=== PATIENT | male | born 1945 | race Caucasian/White ===

== ENCOUNTER 2023-03-31 14:26 | Observation (INO) | payer MEDICARE ==
[~2023-03-31] VITALS: Ht 172.7 cm; Wt 71.4 kg
--- NOTE | ~2023-03-31 | EKG ---
[facility] [address] [facility] [place], [place] [address] Draft EKG completed, results pending confirmation PATIENT NAME: ARABELLA ROMERO Electrocardiogram DATE OF : 49 PHYSICIAN: PRELIMINARY REPORT #: [id number] REPORT IS CONFIDENTIAL AND NOT TO BE RELEASED WITHOUT AUTHORIZATION
[~2023-03-31 14:26] MED LIST: ASPIRIN EC81 MG PO; ATORVASTATIN CA20 MG PO; GLIMEPIRIDE4 MG PO; METFORMIN HCL850 MG PO; METRONIDAZOLE45 G1 TOP; MULTIVITAMINS1 EAC8 PO; PIOGLITAZONE HC45 MG PO
[2023-03-31] MEDS ORDERED: IBLOOD GLUCOSE TEST STRIP 1 EA TEST XX ONE (14:45)
[2023-03-31 14:58] LABS: BASOPHILS 0.7 % (0-2); EOSINOPHILS 4.6 % (0-6); HEMATOCRIT 36.5 % (35.0-50.0); HEMOGLOBIN 12.7 g/dL (12.0-18.0); LYMPHOCYTES 21.7 % (24-44); MCH 33.1 (27-36); MCHC 34.9 g/dl (30-36); MONOCYTES 14.7 % (0-12); NEUTROPHILS 58.3 % (39-80); PLATELET COUNT 156 K/uL (140-440); RBC 3.84 M/ul (4.3-5.7); RDW 13.1 (10.5-15.0)
[2023-03-31] MEDS ORDERED: LISINOPRIL5 MG PO (15:09)
[2023-03-31 15:11] LABS: INR 1.05 (0.80-1.30); PROTIME 13.3 Sec (11.2-14.2)
[2023-03-31 15:13] LABS: PARTIAL THROMBOPLASTIN TIME 27.6 Sec (22.9-41.3)
[2023-03-31 15:16] LABS: ALBUMIN 3.6 g/dL (3.4-5.0); ALBUMIN/GLOBULIN RATIO 1.03 (1.1-2.4); ANION GAP 11.2 (7-21); BUN/CREATININE RATIO 18.51 (6.0-28.6); CALCIUM 8.9 mg/dL (8.5-10.1); CREATININE, SERUM 0.81 mg/dL (0.70-1.30); POTASSIUM 4.2 mmol/L (3.5-5.1); PROTEIN, TOTAL 7.1 g/dL (6.4-8.2)
--- NOTE | 2023-03-31 15:23 | EKG ---
[facility] [facility] [address] [facility] [place], [place] [address] Signed Normal sinus rhythm Left axis deviation Abnormal ECG No previous ECGs available Confirmed by KATY WILKINSON MD ([id number]) on 03/31/2023 3:22:52 PM Electronically Signed By: KATY WILKINSON 03/31/23 1523 PATIENT NAME: ARABELLA ROMERO Electrocardiogram DATE OF : 49 PHYSICIAN: KATY WILKINSON REPORT #: [id number] REPORT IS CONFIDENTIAL AND NOT TO BE RELEASED WITHOUT AUTHORIZATION
[2023-03-31] MEDS ORDERED: ASPIRIN 325 MG TAB PO ONE (15:30)
[2023-03-31 15:48] LABS: AMPHETAMINES, URINE NEGATIVE (NEGATIVE); BARBITURATES, URINE NEGATIVE (NEGATIVE); BENZODIAZEPINE, URINE NEGATIVE (NEGATIVE); BUPRENORPHINE, URINE NEGATIVE (NEGATIVE); CANNABINOID, URINE NEGATIVE (NEGATIVE); COCAINE, URINE NEGATIVE (NEGATIVE); ECSTASY, URINE NEGATIVE (NEGATIVE); FENTANYL, URINE NEGATIVE (NEGATIVE); METHADONE, URINE NEGATIVE (NEGATIVE); OPIATES, URINE NEGATIVE (NEGATIVE); OXYCODONE, URINE NEGATIVE (NEGATIVE); PHENCYCLIDINE, URINE NEGATIVE (NEGATIVE)
[2023-03-31] MEDS ORDERED: CLOPIDOGREL BISULFATE 75 MG TAB PO SCH (16:00)
--- NOTE | 2023-03-31 16:00 | NUR ---
ASKED PATIENT IF HE WOULD LIKE TO WASH HIS HAIR WITH ONE OF OUR SHAMPOO CAPS. HE SAID SURE BROUGHT IT IN HIS ROOM. PUT IT ON HIS HEAD AND DID THE REST.
[2023-03-31] MEDS ORDERED: PHARMACY RENAL DOSE ADJUSTMENT 1 DOSE MISC PO SCH (16:02)
[2023-03-31] MEDS ORDERED: PANTOPRAZOLE SODIUM 40 MG TABEC PO SCH (16:02)
[2023-03-31] MEDS ORDERED: LEVOTHYROXINE50 MCG PO (16:10)
[2023-03-31] MEDS ORDERED: METFORMIN HCL850 MG PO (16:12)
[2023-03-31] MEDS ORDERED: ACETAMINOPHEN 500 MG TAB PO PRN (16:15)
[2023-03-31] MEDS ORDERED: IBLOOD GLUCOSE TEST STRIP 1 EA TEST XX PRN (16:15)
[2023-03-31] MEDS ORDERED: DEXTROSE 50% 50 ML SYR IV PRN ×2 (16:15)
[2023-03-31] MEDS ORDERED: GLUCAGON,HUMAN RECOMBINANT 1 MG/ML VIAL SUB-Q PRN (16:15)
[2023-03-31] MEDS ORDERED: DEXTROSE 5% 1,000 ML IV PRN (16:15)
[2023-03-31 16:26] VITALS: BP 141/78
--- NOTE | 2023-03-31 16:27 | NUR ---
PT ARRIVED FROM ER, PT STANDS AND TRANSFERS SELF TO BED. PT STEADY ON FEET. CHANGES IN TO PAJAMA PANTS WITH NO ASSISTANCE NEEDED. BMAT LEVEL 4, PT INDEPENDANT IN ROOM. PT DENIES PAIN AND NAUSEA. PT ALERT AND ORIENTED TO ALL. NIH SCORE OF 0. PT DENIES ANY CHANGES IN SPEACH OR ANY TINGLING AT THIS TIME. PT STATES ALL HIS PREVIOUS SYMPTOMS HAVE RESOLVED. IZZY PRESENT. HEART TONES REGULAR. TELEMETRY MONITORING PLACED WITH NORMAL SINUS RYTHEM SEEN ON MONITOR, HEART RATE IN THE 80'S. ABDOMEN SOFT AND NON TENDER. LAST BM TODAY. LUNG SOUNDS CLEAR THROUGHOUT. PT TOELRATING ROOM AIR. PT DENEIS CHEST PAIN OR SHORTNESS OF BREATH. NO SKIN ABNOMAILITES PRESENT. MRI SCREENING FORM COMPLETED. BED SIDE SWALLOW EVALUATION COMPLETED, PT PASSESS WITH NO SWALLOWING DIFFICULTIES. MEDICATIONS GIVEN. PT OREINTED TO ROOM AND USE OF CALL LIGHT. NO ADDITIONAL RQEUESTS OR COMPLAINTS. CALL LIGHT WITHIN REACH. BED RAILS UP.
[2023-03-31] MEDS ORDERED: SODIUM CHLORIDE 0.9% 1,000 ML IV SCH (16:30)
[2023-03-31] MEDS ORDERED: INSULIN LISPRO 100 UNIT/ML ML SUB-Q SCH (17:00)
[2023-03-31] MEDS ORDERED: IBLOOD GLUCOSE TEST STRIP 1 EA TEST VI SCH (17:00)
--- NOTE | 2023-03-31 17:24 | NUR ---
IV PUMP ALARMING, "DISTAL OCCLUSION." PT NOTED TO BE ATTEMPTING TO EAT DINNER WITH A LEFT AC IV SITE. PT FRUSTRATED THAT HE CAN'T "BEND MY ELBOW." PT REQUESTS A NEW IV SITE. 22G IV STARTED TO LEFT HAND PER PROTOCOL. BRISK BLOOD RETURN PRESENET. IV FLUIDS SWITCHED TO THIS SITE. PT UP TO VOID USING URINAL, NO ASSISTANCE NEEDED. PTS AT BEDSIDE. TELEMETRY MONITORING UNCHANGED, NORMAL SINUS RYTHEM. NO ADDITIONAL REQUESTS OR COMPLAINTS. CALL LIGHT WITHIN REACH. BED RAILS UP.
--- NOTE | 2023-03-31 17:43 | NUR ---
PT ARRIVED THIS SHIFT, HERE FOR TIA/CVA RULE OUT. MRI PLANNED FOR TOMORROW MORNING. PT INDEPENDANT IN ROOM, STEADY ON FEET. PT TOLERATING 60G CARB DIET, WITH GOOD APPITITE. BLOOD SUGAR CHECKS ACHS WITH SLIDING SCALE INSULIN GIVEN. NIH SCORE OF 0 THIS SHIFT. PT REPORTS ALL SYMTOMS PRIOR TO ER VISIT (TINGLING, CONFUSION, SLURRED SPEACH) HAVE RESOLVED. PT STARTED ON PLAVIX. TELEMETRY MONITORING IN PLACE THIS SHIFT WITH NORMAL SINUS RYTHEM SEEN ON MONITOR. IV FLUIDS INFUSING. PT VOIDING QUANITYT SUFFICIENT, PT USES CALL LIGHT AND MAKES NEEDS KNOWN.
--- NOTE | 2023-03-31 18:00 | NUR ---
PATIENT IS LAYING UP IN BED WATCHING A FOOTBALL GAME.
--- NOTE | 2023-03-31 18:31 | NUR ---
THIS RN TO ROOM TO CHECK ON PT. PT WATCHING TV. FINISHED WITH DINNER. PT DENIES PAIN AND NAUSEA. PT DENIES ADDITIONAL NEUROLOGICAL SYMPTOMS AT THIS TIME. PT DENIES REQUESTS OR COMPLAINTS. CALL LIGHT WITHIN REACH. BED RAILS UP.
--- NOTE | 2023-03-31 19:20 | NUR ---
REPORT RECIEVED FROM COLLETTE AIKEN AND YVETTE AIKEN. PATIENT SITTING IN BED RESTING. IVF INFUSING PER ORDER. BOARD UPDATED. URINAL EMPTIED. CALL LIGHT WITHIN REACH. NO OTHER NEEDS AT THIS TIME.
[2023-03-31 21:39] VITALS: BP 104/57
--- NOTE | 2023-03-31 22:00 | NUR ---
ASSESSMENT AND VITAL SIGNS DONE. URINAL EMPTIED. pt HAS HOME CPAP ON. CBG DONE. SS INSULIN ADMINISTERED. IV SITES ASSESSED, WNL. IVF INFUSING PER ORDER. CALL LIGHT WITHIN REACH. NO OTHER NEEDS AT THIS TIME.
--- NOTE | 2023-04-01 00:14 | NUR ---
PATIENT RESTING IN BED WITH EYES CLOSED. CPAP ON. RESP OBSERVED, EVEN AND UNLABORED. CALL LIGHT WITHIN REACH. IN ROOM.
[2023-04-01 00:24] VITALS: BP 105/65
--- NOTE | 2023-04-01 00:25 | NUR ---
VITAL SIGNS AND ASSESSMENT DONE. pt HOME CPAP ON. IVF INFUSING PER ORDER, WNL. URINAL EMPTIED. CALL LIGHT WITHIN REACH. NO OTHER NEEDS AT THIS TIME.
--- NOTE | 2023-04-01 01:59 | NUR ---
PATIENT RESTING IN BED WITH EYES CLOSED. CPAP IN PLACE. RESP OBSERVED. CALL LIGHT WITHIN REACH. NO OTHER NEEDS AT THIS TIME.
[2023-04-01 04:06] VITALS: BP 108/65
--- NOTE | 2023-04-01 04:18 | NUR ---
VITAL SIGNS AND I&O'S DONE. URINAL EMPTIED. CPAP ON. CALL LIGHT WITHIN REACH. NO OTHER NEEDS AT THIS TIME.
[2023-04-01 05:43] LABS: BASOPHILS 1.3 % (0-2); EOSINOPHILS 5.3 % (0-6); HEMATOCRIT 33.7 % (35.0-50.0); HEMOGLOBIN 11.9 g/dL (12.0-18.0); LYMPHOCYTES 22.8 % (24-44); MCH 33.2 (27-36); MCHC 35.2 g/dl (30-36); MCV 94.1 fl (81-99); MONOCYTES 11.5 % (0-12); NEUTROPHILS 59.1 % (39-80); PLATELET COUNT 142 K/uL (140-440); RBC 3.58 M/ul (4.3-5.7)
[2023-04-01 06:01] LABS: BUN/CREATININE RATIO 16.43 (6.0-28.6); CALCIUM 8.4 mg/dL (8.5-10.1); CREATININE, SERUM 0.73 mg/dL (0.70-1.30)
--- NOTE | 2023-04-01 06:33 | NUR ---
pt SLEPT MOST OF THE NIGHT WITH HOME CPAP HOME. IN RM. IVF INFUSING PER ORDER. pt INDEPENDENT IN THE RM. pt USES BEDSIDE URINAL. NUERO CHECKS DONE.
--- NOTE | 2023-04-01 07:38 | NUR ---
IN TO OBTAIN BG. PT SITTING UP IN BED. PT RESPONDS WHEN ADDRESSED. DR. WILKINSON IN ROOM TO TALK WITH PT. BG OF 138 NOTED. PT DENIES ANY OTHER NEEDS AT THIS TIME. CALL LIGHT IN REACH. IN ROOM.
--- NOTE | 2023-04-01 08:00 | NUR ---
RECIEVED REPORT FROM ATTILA FLORES. PT SITTING UP IN BED VISITING WITH , REQUESTS HOT TEA, GIVEN. PT STATES NO FURTHER NEEDS AT THIS TIME, CALL LIGHT WITHIN REACH, BED RAILS UP.
--- NOTE | 2023-04-01 09:20 | NUR ---
MORNING ASSESSMENT AND MEDICATIONS DUE, GIVEN (GIVEN). PT DENIES PAIN, NAUSEA, SOB. NIH SCORE REMAINS AT "0" THIS MORNING. PT DENIES ANY NUMBNESS, TINGLING, WEAKNESS. ALL EXTREMETIES AT NORMAL STRENGTH. LUNG SOUNDS CLEAR IN ALL LOBES. PT REMAINS ON TELE, HR IN THE 60s, HEART TONES NORMAL. CAP REFILL BRISK <3 SECONDS IN ALL EXTREMETIES, NO EDEMA PRESENT, PULSES STRONG IN ALL EXTREMETIES. BOWEL TONES ACTIVE IN ALL QUANDRANTS, LAST BM 03/31/23 (YESTERDAY). PT TOLERATING REGULAR DIET WELL. PT URINATING QUANTITY SUFFICIENT CLEAR YELLOW URINE INDEPENDENTLY. PT STATES HIS HEELS ARE DRY AND CRACKING AND THAT THIS IS "NORMAL" FOR HIM AND TYPICALLY TREATS IT WITH LOTION AT HOME, PT OFFERED LOTION, LOTION APPLIED. PT UP FOR WALK, 2 LAPS AROUND UNIT WITH ATTILA LOBATO. PT INDEPENDENT IN AMBULATION. PT STATES NO NEEDS AT THIS TIME.
--- NOTE | 2023-04-01 09:20 | NUR ---
THIS RN AMBULATED SBA WITH PT DOWN THE MED/SURG LOZOYA X3 LAPS. PT HAS STEADY GAIT. PT BACK IN BED. PT DENIES ANY OTHER NEEDS AT THIS TIME. CALL LIGHT IN REACH. IN ROOM.
[2023-04-01 09:25] VITALS: BP 122/63
--- NOTE | 2023-04-01 09:42 | NUR ---
MS MCNAIR. PROVIDED ROCK ROOM WORKER EDUCATION. NORMALIZED EXPERIENCE OF FAMILY. EXPLORED SPIRITUAL NEEDS AND RESOURCES. PROVIDED PRAYER.
--- NOTE | 2023-04-01 10:00 | NUR ---
Pt lives in two story home. Seven steps into the home and 14 steps to upstairs and basement. Pt does not have issues with steps and get around without problems. Pt drives during the day. They diamond picker their groceries and share house hold chores. Per pt has a history of DM and family history of TIA's. She states he checks his BS and takes his meds as prescribed. 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 denies any fiancial issues and they do not use any outside resources. Both plan on dc to home today after the MRI.
--- NOTE | 2023-04-01 10:00 | NUR ---
HOURLY ROUNDING, TELE REMOVED AND IV SALINE LOCKED FOR PT TO GO TO MRI. PT LEAVES IN WHEELCHAIR WITH IMAGING STAFF.
[2023-04-01] MEDS ORDERED: CICLOPIROX100 GM TOP (10:24)
[2023-04-01] MEDS ORDERED: VITAMIN D325 MCG PO (10:26)
[2023-04-01] MEDS ORDERED: UREA198 GM TOP (10:26)
--- NOTE | 2023-04-01 10:28 | NUR ---
MED REC COMPLETE
--- NOTE | 2023-04-01 10:47 | NUR ---
IN PT BACK FROM IMAGING. IV FLUIDS RESUMED. IV FLUSHES WNL AND INFUSING WNL. TELE PLACED BACK ON PT. PT SITTING IN BED. PT RESPONDS WHEN ADDRESSED. URINAL EMPTIED. PT DENIES ANY OTHER NEEDS AT THIS TIME. CALL LIGHT IN REACH. IN ROOM.
[2023-04-01] MEDS ORDERED: CLOPIDOGREL75 MG PO (11:21)
[2023-04-01 11:50] VITALS: BP 137/77
[2023-04-01 11:55] VITALS: BP 137/77
--- NOTE | 2023-04-01 12:05 | NUR ---
DISCHARGE NOTE. VSS. TELE DC'D D/T DISCHARGE, NSR WITH HR IN THE 60s PER TELE PRIOR TO DC. BOTH IVs DC'D D/T DISCHARGE, DC'D WNL, CATHETERS INTACT, BOTH SITES WRAPPED WITH GAUZE AND COBAN PER PROTOCOL. PT AND PROVIDED DC PACKET AND DC EDUCATION, PT AND VERBALIZE UNDERSTANDING OF INSTRUCTIONS, MEDICATIONS, FOLLOW-UPS, AND TEACH BACK PERFORMED. PT AND STATE ALL QUESTIONS HAVE BEEN ANSWERED. PT DRESSED SELF INDEPENDENTLY, AMBULATES TO WHEELCHAIR INDEPENDENTLY, WHEELED TO FRONT OF BUILDING BY NURSING PERSONEL.
== END 2023-04-01 12:05 | disposition home or self-care (01) ==
LOC: ED 14:26 → MS 14:28
PROVIDERS: Emergency Medicine; ADMIT Internal Medicine; ATTEND Internal Medicine
DX: G45.9 Transient cerebral ischemic attack, unspecified (principal); E11.9 Type 2 diabetes mellitus without complications; I10 Essential (primary) hypertension; E87.1 Hypo-osmolality and hyponatremia; E78.00 Pure hypercholesterolemia, unspecified; Z79.84 Long term (current) use of oral hypoglycemic drugs; Z79.82 Long term (current) use of aspirin; Z79.899 Other long term (current) drug therapy; Z88.2 Allergy status to sulfonamides
CPT/HCPCS: 36415; 70450; 70496; 70498; 70551; 71045; 80048; 80053; 80307; 84484; 85025; 85610; 85730; 93005; 93010; 99285-25; A9270; G0378; J1815; J7030; Q9967

== ENCOUNTER 2024-08-23 07:09 | Day surgery (SDC) | payer MEDICARE ==
[~2024-08-23] VITALS: Ht 172.7 cm; Wt 68.2 kg
[~2024-08-23 07:09] MED LIST changes: -ATORVASTATIN CA20 MG PO; +ATORVASTATIN CA40 MG PO; +CICLOPIROX100 GM TOP; +CLOPIDOGREL75 MG PO; +IBLOOD GLUCOSE TEST STRIP 1 EA TEST VI PRN; +LACTATED RINGER'S 1,000 ML IV SCH; +LEVOTHYROXINE50 MCG PO; +LIDOCAINE HCL 1% 5 ML SDV INJ ONE; +LISINOPRIL5 MG PO; +MIDAZOLAM HCL 5 MG/5 ML VIAL IV PRN; +UREA198 GM TOP; +VITAMIN D325 MCG PO; +fentaNYL citrate 100 MCG/2 ML VIAL IV PRN
[2024-08-23 07:24] VITALS: BP 134/61
[2024-08-23] MEDS ORDERED: MIDAZOLAM HCL 5 MG/5 ML VIAL ONE (07:52)
[2024-08-23] MEDS ORDERED: fentaNYL citrate 100 MCG/2 ML VIAL ONE (07:52)
--- NOTE | 2024-08-23 08:07 | NUR ---
VISITED DURING SPIRITUAL CARE ROUNDS. PT SUPPORTED BY FIELD FOREMAN IN ROOM. BOTH DENY IMMEDIATE NEEDS. ENGINEERED WOOD DESIGNER PROVIDED SUPPORTIVE PRESENCE, HOSPITALITY, PRAYER. PT AND FIELD FOREMAN EXPRESSED GRATITUDE.
--- NOTE | 2024-08-23 09:06 | NUR ---
08/23/24 0906 Khloe Leach 0865-PATIENT ARRIVED TO PACU ON 3L NC RR EVEN. PATIENT AWAKE DENIES PAIN OR NAUSEA. PLACED ON 2L. ENCOURAGED TO PASS GAS. PATIENT LAYING LEFT LATERAL IVF INFUSING. SINUS BRADYCARDIA HR 50'S. 0904-GLUCOSE CHECKED 148. PATIENT CLOSES EYES.
[2024-08-23 09:38] VITALS: BP 149/77
--- NOTE | 2024-08-23 12:39 | OR ---
[facility] [address] [place], [place] [address] Signed DATE OF OPERATION: 08/23/2024 SURGEON: Marybel Muller MD PREOPERATIVE DIAGNOSIS: Positive Cologuard testing. POSTOPERATIVE DIAGNOSIS: Normal colon to cecum. PROCEDURE: Total colonoscopy to cecum. ANESTHESIA: Intravenous sedation, fentanyl 100 mcg, Versed 4 mg. INDICATION: This 79-year-old white man is a patient of Dr. Matt Contreras and referred for consideration of colonoscopy for a reported positive Cologuard test. I am unable to find the paperwork to affirm the date of that test. He has undergone colonoscopy in the past in [facility] including colonoscopy in 2009, which was said to be normal. He has no family history of colon cancer. He has no complaints of bleeding, diarrhea, or constipation currently. He is admitted to undergo colonoscopy. He understands the risk of bleeding, infection, and perforation. FINDINGS: The prep was good. Complete colonoscopy was undertaken to the cecum. Despite efforts to do so, no adenomatous polyp was identified. DESCRIPTION OF PROCEDURE: The patient was brought to the endoscopy suite and placed in lateral decubitus position, given intravenous sedation to the point of slurred speech and nystagmus. Digital rectal examination was normal. An Olympus video colonoscope was passed in the rectum and manipulated throughout the colon ultimately intubating the right colon. Abdominal wall palpation was undertaken to better visualize the cecum itself. A biopsy forceps was used to elevate the mucosa behind the ileocecal valve, but there was no sign of abnormality. The scope was then carefully withdrawn and examination throughout undertaken showing no sign of abnormality specifically no polyps, diverticular formation, colitis, or cancer. Retroflexed view of Electronically Signed By: MARYBEL MULLER MD 08/23/24 1239 PATIENT NAME: ARABELLA CONTRERAS OPERATIVE REPORT DATE OF : 49 REPORT #: [id number] PHYSICIAN: MARYBEL MULLER MD PCP: MATT CONTRERAS MD REPORT IS CONFIDENTIAL AND NOT TO BE RELEASED WITHOUT AUTHORIZATION [facility] [address] [place], [place] [address] Signed the rectum was normal. Scope was removed and the patient was taken to the recovery room in good condition. CONCLUDING DIAGNOSIS: He may well have had a positive Cologuard test but was "falsely positive." The current data shows a false-positive rate on Cologuard testing of approximately 17% worse in people at higher ages. I would recommend a repeat colonoscopy in 10 years, sooner if clinically appropriate or indicated and he will return to the ongoing care of Dr. Matt Contreras. MD BEN Graff/RATNA /[id number] cc: Matt Contreras MD Copies: MATT CONTRERAS MD ~ Electronically Signed By: MARYBEL MULLER MD 08/23/24 1239 PATIENT NAME: ARABELLA CONTRERAS OPERATIVE REPORT DATE OF : 49 REPORT #: [id number] PHYSICIAN: MARYBEL MULLER MD PCP: MATT CONTRERAS MD REPORT IS CONFIDENTIAL AND NOT TO BE RELEASED WITHOUT AUTHORIZATION
== END 2024-08-23 09:45 | disposition home or self-care (01) ==
LOC: DS 07:09
PROVIDERS: ATTEND Surgery
PROC: 0DJD8ZZ Inspection of Lower Intestinal Tract, Via Natural or Artificial Opening Endoscopic (ICD-10-PCS; principal; 2024-08-23 08:05)
DX: Z12.11 Encounter for screening for malignant neoplasm of colon (principal); I10 Essential (primary) hypertension; E03.9 Hypothyroidism, unspecified; E11.9 Type 2 diabetes mellitus without complications; G47.30 Sleep apnea, unspecified; Z86.73 Personal history of transient ischemic attack (TIA), and cerebral infarction without residual deficits; Z85.46 Personal history of malignant neoplasm of prostate; Z90.09 Acquired absence of other part of head and neck; Z88.2 Allergy status to sulfonamides; Z79.84 Long term (current) use of oral hypoglycemic drugs
CPT/HCPCS: 99153; G0500; J2250; J3010; J7121